=== PATIENT | male | born 1985 | race Caucasian/White ===

== ENCOUNTER 2017-01-06 01:24 | Emergency (ER) | payer MEDICAID ==
[~2017-01-06] VITALS: Ht 175.3 cm; Wt 86.6 kg
[2017-01-06] MEDS ORDERED: ACETAMINOPHEN 500 MG TABLET ONE (02:41)
[2017-01-06] MEDS ORDERED: ACETAMINOPHEN 500 MG TABLET PO ONE (03:00)
[2017-01-06] MEDS ORDERED: ACETAMINOPHEN 325 MG TABLET PO ONE (03:00)
[2017-01-06] MEDS ORDERED: KETOROLAC 30 MG/1 ML IM ONE (03:30)
[2017-01-06] MEDS ORDERED: KETOROLAC 30 MG/1 ML ONE (03:36)
[2017-01-06 04:10] VITALS: BP 133/77
[2017-01-06] MEDS ORDERED: DEXAMETHASONE 4 MG/ML, 1ML PO ONE (04:30)
[2017-01-06] MEDS ORDERED: DEXAMETHASONE 4 MG/ML, 1ML ONE (04:32)
== END 2017-01-06 04:43 | disposition home or self-care (01) ==
LOC: ED 04:00
DX: J20.8 Acute bronchitis due to other specified organisms (principal); F17.200 Nicotine dependence, unspecified, uncomplicated; Z88.2 Allergy status to sulfonamides
CPT/HCPCS: 87081; 87880; 96372; 99284; J1100; J1885

== ENCOUNTER 2017-10-29 09:09 | Emergency (ER) | payer MEDICAID ==
[~2017-10-29] VITALS: Ht 175.3 cm; Wt 88.1 kg
[2017-10-29] MEDS ORDERED: ONDANSETRON ODT 8 MG ONE (09:38)
[2017-10-29] MEDS ORDERED: ONDANSETRON ODT 8 MG PO ONE (10:00)
[2017-10-29 11:12] VITALS: BP 134/80
== END 2017-10-29 11:14 | disposition home or self-care (01) ==
LOC: ED 10:23
DX: R11.2 Nausea with vomiting, unspecified (principal); R19.7 Diarrhea, unspecified; R10.9 Unspecified abdominal pain
CPT/HCPCS: 99283; Q0162

== ENCOUNTER 2017-11-17 00:44 | Emergency (ER) | payer MEDICAID ==
[~2017-11-17] VITALS: Ht 175.3 cm; Wt 86.1 kg
[2017-11-17 00:45] VITALS: BP 161/106
== END 2017-11-17 01:27 | disposition home or self-care (01) ==
LOC: ED 01:12
DX: K13.0 Diseases of lips (principal)
CPT/HCPCS: 99283

== ENCOUNTER 2019-02-13 07:51 | Emergency (ER) | payer SELFPAY ==
[~2019-02-13] VITALS: Ht 175.3 cm; Wt 84.4 kg
[2019-02-13 07:54] VITALS: BP 129/77
[2019-02-13] MEDS ORDERED: metroNIDAZOLE 500 MG TABLET ONE (08:20)
[2019-02-13] MEDS ORDERED: AZITHROMYCIN 250 MG TABLET ONE (08:20)
[2019-02-13] MEDS ORDERED: CEFTRIAXONE 250 MG ONE (08:20)
[2019-02-13] MEDS ORDERED: metroNIDAZOLE 500 MG TABLET PO ONE (08:30)
[2019-02-13] MEDS ORDERED: AZITHROMYCIN 500 MG TABLET PO ONE (08:30)
[2019-02-13] MEDS ORDERED: CEFTRIAXONE 250 MG IM ONE (08:30)
== END 2019-02-13 08:59 | disposition home or self-care (01) ==
LOC: ED 08:36
DX: J06.9 Acute upper respiratory infection, unspecified (principal); A74.9 Chlamydial infection, unspecified; A59.9 Trichomoniasis, unspecified; A54.9 Gonococcal infection, unspecified; M79.89 Other specified soft tissue disorders
CPT/HCPCS: 71046; 87081; 87880; 96372; 99284; J0696